=== PATIENT | male | born 1960 | race African-American/Black ===

== ENCOUNTER 2021-01-30 10:15 | Emergency (ER) | payer BC, OTHER ==
[~2021-01-30] VITALS: Ht 177.8 cm; Wt 95.3 kg
[2021-01-30 10:19] VITALS: BP 122/79
== END 2021-01-30 11:57 | disposition home or self-care (01) ==
LOC: ER 10:15
DX: T78.3XXA Angioneurotic edema, initial encounter (principal); E78.5 Hyperlipidemia, unspecified; F17.210 Nicotine dependence, cigarettes, uncomplicated; X58.XXXA Exposure to other specified factors, initial encounter

== ENCOUNTER 2021-02-15 09:42 | Inpatient (IN) | payer SELFPAY ==
[~2021-02-15] VITALS: Ht 179.1 cm; Wt 96.1 kg
[2021-02-15 10:14] LABS: Basophils # (auto) 0.1 10 ^3/uL (0-0.2); Basophils % (auto) 0.5 % (0.0-2.0); Eosinophils # (auto) 0.2 10 ^3/uL (0-0.8); Eosinophils % (auto) 1.1 % (0.0-7.0); Hematocrit 44.8 % (41.0-53.0); Hemoglobin 15.5 g/dL (13.5-17.5); Lymphocytes # (auto) 1.7 10 ^3/uL (0.4-5.4); Lymphocytes % (auto) 10.5 % (10.0-50.0); Mean Corpuscular Hemoglobin 28.8 pg (28.0-32.0); Mean Corpuscular Hgb Conc. 34.7 g/dL (32.0-36.0); Monocytes % (auto) 6.3 % (0.0-12.0); Neutrophils # (auto) 13.3 10 ^3/uL (1.6-8.6); Neutrophils % (auto) 81.6 % (37.0-80.0); Nucleated Red Blood Cells % 0.1 %; Red Cell Distribution Width 16.1 % (11.8-14.3); White Blood Cell 16.3 10^3/uL (4.4-10.8)
[2021-02-15 10:35] LABS: Albumin 3.6 g/dL (3.4-5.0); Anion Gap 7 (5-15); Blood Urea Nitrogen 15 mg/dL (7-18); Calcium 8.6 mg/dL (8.5-10.1); Carbon Dioxide 21 mmol/L (21-32); Chloride 114 mmol/L (98-107); Glucose 97 mg/dL (74-106); Potassium 3.8 mmol/L (3.5-5.1); Sodium 142 mmol/L (136-145)
[2021-02-15 10:40] LABS: Alanine Aminotransferase 26 U/L (16-61); Alkaline Phosphatase 86 U/L (45-117); Aspartate Aminotransferase 13 U/L (15-37); BUN/Creatinine Ratio 13.4; Bilirubin, Total 0.4 mg/dL (0.2-1.0); GFR African American 86 mL/min; GFR Non-African American 71 mL/min; Total Protein 7.4 g/dL (6.4-8.2)
[2021-02-15] MEDS ORDERED: SODIUM CHLORIDE 0.9% 1,000 ML IVB ONE (10:45)
[2021-02-15 12:27] LABS: Urine Bacteria MANY /hpf (None Seen); Urine Mucus FEW (None Seen)
[2021-02-15 12:29] LABS: Urine Blood Negative /uL (Negative); Urine WBC 75 /hpf (0 - 3)
[2021-02-15] MEDS ORDERED: metroNIDAZOLE 500MG/100ML 100 ML IV ONE (12:45)
[2021-02-15] MEDS ORDERED: ONDANSETRON HCL 4 MG/2 ML VIAL IV PRN (13:30)
[2021-02-15] MEDS ORDERED: MORPHINE SULFATE INJECTION 2 MG/ML SYRG IV PRN ×2 (13:30)
[2021-02-15] MEDS ORDERED: ACETAMINOPHEN 500 MG TAB PO PRN (13:30)
[2021-02-15] MEDS ORDERED: NITROGLYCERIN 0.4 MG SL TAB SL PRN (13:30)
[2021-02-15] MEDS: cefTRIAXone 1GM/50ML D5W 50 ML IV SCH (14:50)
[2021-02-15] MEDS: SOD CHL 0.45% 1,000 ML IV SCH ×2 (14:50→22:07)
[2021-02-15 20:22] VITALS: BP 145/79
[2021-02-15 21:00] VITALS: BP 145/79
[2021-02-15] MEDS: metroNIDAZOLE 500MG/100ML 100 ML IV SCH (22:07)
[2021-02-16] MEDS: metroNIDAZOLE 500MG/100ML 100 ML IV SCH ×3 (05:12→21:12)
[2021-02-16 06:03] VITALS: BP 118/64
[2021-02-16 06:42] LABS: Basophils # (auto) 0 10 ^3/uL (0-0.2); Basophils % (auto) 0.4 % (0.0-2.0); Eosinophils # (auto) 0.1 10 ^3/uL (0-0.8); Eosinophils % (auto) 1.1 % (0.0-7.0); Hematocrit 40.9 % (41.0-53.0); Lymphocytes # (auto) 1.6 10 ^3/uL (0.4-5.4); Mean Corpuscular Hemoglobin 28.5 pg (28.0-32.0); Mean Corpuscular Hgb Conc. 34.2 g/dL (32.0-36.0); Mean Corpuscular Volume 83.3 fL (80.0-100.0); Monocytes # (auto) 0.9 10 ^3/uL (0-1.3); Monocytes % (auto) 7.5 % (0.0-12.0); Nucleated Red Blood Cells % 0.1 %; Red Blood Cells 4.91 10^6/uL (4.5-5.90); Red Cell Distribution Width 16.2 % (11.8-14.3); White Blood Cell 11.7 10^3/uL (4.4-10.8)
[2021-02-16 07:28] LABS: Potassium 3.5 mmol/L (3.5-5.1)
[2021-02-16 07:36] LABS: BUN/Creatinine Ratio 12.5; Calcium 8.3 mg/dL (8.5-10.1)
[2021-02-16 09:00] VITALS: BP 113/68
[2021-02-16] MEDS: cefTRIAXone 1GM/50ML D5W 50 ML IV SCH (10:04)
[2021-02-16] MEDS: FAMOTIDINE 20 MG TAB PO SCH (10:05)
[2021-02-16] MEDS: SOD CHL 0.45% 1,000 ML IV SCH ×2 (10:05→23:50)
[2021-02-16 13:00] VITALS: BP 155/82
[2021-02-16 17:00] VITALS: BP 116/74
[2021-02-16 22:00] VITALS: BP 153/92
[2021-02-17 05:00] VITALS: BP 106/72
[2021-02-17] MEDS: metroNIDAZOLE 500MG/100ML 100 ML IV SCH ×3 (06:00→22:07)
[2021-02-17] MEDS: SOD CHL 0.45% 1,000 ML IV SCH ×2 (06:00→14:58)
[2021-02-17 08:43] VITALS: BP 113/66
[2021-02-17] MEDS: cefTRIAXone 1GM/50ML D5W 50 ML IV SCH (09:40)
[2021-02-17] MEDS: FAMOTIDINE 20 MG TAB PO SCH (09:41)
[2021-02-17] MEDS ORDERED: diphenhdrAMINE HCL 25 MG CAP PO PRN (09:45)
[2021-02-17] MEDS ORDERED: diphenhdrAMINE HCL 50 MG/1 ML VL IV PRN ×2 (10:00→10:15)
[2021-02-17 12:58] VITALS: BP 115/64
[2021-02-17 17:00] VITALS: BP 125/75
[2021-02-17 22:00] VITALS: BP 127/69
[2021-02-18] MEDS: SOD CHL 0.45% 1,000 ML IV SCH ×2 (02:32→11:30)
[2021-02-18 05:00] VITALS: BP 133/71
[2021-02-18] MEDS: metroNIDAZOLE 500MG/100ML 100 ML IV SCH (05:31)
[2021-02-18] MEDS: FAMOTIDINE 20 MG TAB PO SCH (08:05)
[2021-02-18] MEDS: cefTRIAXone 1GM/50ML D5W 50 ML IV SCH (08:06)
[2021-02-18 09:00] VITALS: BP 117/69
== END 2021-02-18 13:45 | disposition home or self-care (01) | DRG 394 ==
LOC: ER 09:42 → OVERFLOW 13:24 → EAST 20:17
PROVIDERS: ADMIT Nurse Practitioner Acute Care; ATTEND Family Medicine
DX: K62.89 Other specified diseases of anus and rectum (principal); K57.32 Diverticulitis of large intestine without perforation or abscess without bleeding; N30.90 Cystitis, unspecified without hematuria; F17.210 Nicotine dependence, cigarettes, uncomplicated; J43.9 Emphysema, unspecified; Z20.822 Contact with and (suspected) exposure to COVID-19; Z82.49 Family history of ischemic heart disease and other diseases of the circulatory system; Z71.6 Tobacco abuse counseling
CPT/HCPCS: 36415; 74176; 80048; 80053; 81001; 82378; 83690; 84154; 84443; 84484; 85025; 85049; 87086; 87088; 87186; 87426; 87493; 93005; 96365; 96367; G0378; J0696; J3490

== ENCOUNTER 2022-08-28 10:18 | Emergency (ER) | payer MEDICAID ==
[~2022-08-28] VITALS: Ht 177.8 cm; Wt 106.0 kg
[2022-08-28 11:00] VITALS: BP 122/77
[2022-08-28] MEDS ORDERED: DexAMETHasone SOD PHOS 10MG/1ML VIAL INJ IM ONE (12:00)
[2022-08-28] MEDS ORDERED: diphenhdrAMINE HCL 25 MG CAP PO ONE (12:00)
== END 2022-08-28 12:14 | disposition home or self-care (01) ==
LOC: ER 10:18
DX: T78.40XA Allergy, unspecified, initial encounter (principal); R22.0 Localized swelling, mass and lump, head; X58.XXXA Exposure to other specified factors, initial encounter
CPT/HCPCS: 96372; 99283; J1100